=== PATIENT | female | born 1950 | race African-American/Black ===

== ENCOUNTER 2018-01-20 15:25 | Inpatient (IN) | payer BC, MEDICARE ==
[~2018-01-20] VITALS: Ht 154.9 cm; Wt 88.5 kg
[2018-01-20] MEDS ORDERED: MORPHINE SULFATE 4 MG/ML CPJ (NOT FOR IM USE) IV STA (16:42)
[2018-01-20] MEDS ORDERED: ONDANSETRON HCL 4MG/2ML INJ IV STA (16:42)
[2018-01-20 17:52] LABS: BASOPHILS % 0.5 % (0.0-2.0); EOSINOPHILS % 0.6 % (0.0-5.0); HEMATOCRIT. 37.1 % (36.0-48.0); HEMOGLOBIN. 12.3 g/dL (12.0-16.0); LYMPHOCYTES % 21.9 % (20.0-50.0); MEAN CORPUSCULAR HEMOGLOBIN 28.6 pg (28.0-32.0); MEAN CORPUSCULAR VOLUME 86.3 fL (81.0-99.0); MEAN PLATELET VOLUME 9.1 fl (7.4-10.4); PLATELET 285 x1000/uL (130-400); RED BLOOD CELL COUNT 4.29 mill/uL (4.2-5.4); RED CELL DISTRIBUTION WIDTH 14.8 % (11.6-14.6)
[2018-01-20 17:57] LABS: CHLORIDE 106 mEq/L (98-107)
[2018-01-20 17:59] LABS: INR 1.1; PROTHROMBIN TIME 10.7 sec (9.1-11.1)
[2018-01-20] MEDS ORDERED: ENOXAPARIN 40MG/0.4ML SYR SUBCUT SCH (20:30)
[2018-01-20] MEDS ORDERED: HYDROCODONE/ACETAMINOPHEN 5/325MG TABLET PO PRN (20:30)
[2018-01-20] MEDS ORDERED: GUAIFENESIN 200MG/10ML SUGAR FREE UDC PO PRN (20:30)
[2018-01-20] MEDS ORDERED: DOCUSATE SODIUM 100MG CAPSULE PO PRN (20:30)
[2018-01-20] MEDS ORDERED: HYDROCODONE/APAP 7.5/325MG 1 TAB TABLET PO PRN (20:30)
[2018-01-20] MEDS ORDERED: ONDANSETRON HCL 4MG/2ML INJ IV PRN (20:30)
[2018-01-20] MEDS ORDERED: NA PHOS,M-B/NA PHOS,DI-BA ENEMA 118ML PR PRN (20:30)
[2018-01-21] VITALS (7 sets, daily range): BP systolic 105–166; BP diastolic 47–85
[2018-01-21] MEDS ORDERED: LOPHC5 GT (02:09)
[2018-01-21 08:08] LABS: BASOPHILS % 0.5 % (0.0-2.0); HEMOGLOBIN. 12.2 g/dL (12.0-16.0); LYMPHOCYTES % 18.8 % (20.0-50.0); MEAN CORPUSCULAR HEMOGLOBIN 29.1 pg (28.0-32.0); MEAN CORPUSCULAR VOLUME 85.7 fL (81.0-99.0); MEAN PLATELET VOLUME 8.6 fl (7.4-10.4); NEUTROPHILS % 72.7 % (40.0-76.0); PLATELET 294 x1000/uL (130-400)
[2018-01-21 08:50] LABS: CHLORIDE 106 mEq/L (98-107)
[2018-01-21] MEDS: METOPROLOL TARTRATE 25MG TABLET PO SCH ×2 (09:25→21:52)
[2018-01-21] MEDS: ENOXAPARIN 30MG/0.3ML SYR SUBCUT SCH ×2 (09:26→21:53)
[2018-01-21] MEDS: AMLODIPINE 10MG TABLET PO SCH (09:26)
[2018-01-21] MEDS: FAMOTIDINE 20MG TABLET PO SCH (21:53)
[2018-01-21] MEDS: DEXAMETHASONE 4MG/ML 1ML VIAL IV SCH (22:08)
[2018-01-22] VITALS (7 sets, daily range): BP systolic 115–181; BP diastolic 51–89
[2018-01-22] MEDS: AMLODIPINE 10MG TABLET PO SCH (09:30)
[2018-01-22] MEDS: FAMOTIDINE 20MG TABLET PO SCH ×2 (09:30→21:21)
[2018-01-22] MEDS: DEXAMETHASONE 4MG/ML 1ML VIAL IV SCH ×3 (09:31→17:00)
[2018-01-22] MEDS: METOPROLOL TARTRATE 25MG TABLET PO SCH ×2 (09:31→21:21)
[2018-01-23] VITALS: BP 115/54
[2018-01-23 04:00] VITALS: BP 120/55
[2018-01-23 08:00] VITALS: BP 136/57
[2018-01-23] MEDS: AMLODIPINE 10MG TABLET PO SCH (09:50)
[2018-01-23] MEDS: METOPROLOL TARTRATE 25MG TABLET PO SCH (09:50)
[2018-01-23] MEDS: FAMOTIDINE 20MG TABLET PO SCH (09:50)
[2018-01-23] MEDS: DEXAMETHASONE 4MG/ML 1ML VIAL IV SCH (09:50)
== END 2018-01-23 10:55 | disposition short-term general hospital (02) | DRG 551 ==
LOC: ER 15:25 → 6EST 18:57 → EDBEDREQ 19:07 → ENRESERV 22:26
PROVIDERS: ADMIT Hospitalist; ATTEND Hospitalist
DX: M48.02 Spinal stenosis, cervical region (principal); G82.50 Quadriplegia, unspecified; G95.20 Unspecified cord compression; M51.37 Other intervertebral disc degeneration, lumbosacral region; M48.07 Spinal stenosis, lumbosacral region; I10 Essential (primary) hypertension; E66.01 Morbid (severe) obesity due to excess calories; M17.0 Bilateral primary osteoarthritis of knee; K59.09 Other constipation; R62.7 Adult failure to thrive; Z98.84 Bariatric surgery status; Z68.36 Body mass index [BMI] 36.0-36.9, adult
CPT/HCPCS: 36415; 71045; 72131; 72141; 72146; 72148; 73562; 80053; 85025; 85610; 93005; 93970; 96374; 96375; 97163; 97530; 99285; J1100; J1650; J2270; J2405